=== PATIENT | male | born 1985 | race African-American/Black ===

== ENCOUNTER 2020-06-18 14:42 | Emergency (ER) | payer SELFPAY ==
--- NOTE | 2020-06-18 15:09 | ER Document Report ---
ED Medical Screen (RME) - General Chief Complaint: Chest Pain Stated Complaint: ANXIOUS,CHEST PAIN Time Seen by Provider: 06/18/20 15:01 Mode of Arrival: Ambulatory Information source: Patient Notes: 35-year-old male presented to ED for complaint of chest pain. He states his his chest is very painful and the chest pain is causing him to be short of breath. He states the chest pain started about an hour. He states he did drink 2 rapid energy drinks before coming to the emergency room. He states he is getting very lightheaded right now. He is having trouble staying in the chair. I have greeted and performed a rapid initial assessment of this patient. A comprehensive ED assessment and evaluation of the patient, analysis of test results and completion of medical decision making process will be conducted by an additional ED providers. Physical Exam - Vital signs Vitals: Temp Pulse Resp BP Pulse Ox 98.8 F 158 H 20 159/76 H 100 06/18/20 14:55 06/18/20 14:55 06/18/20 14:55 06/18/20 14:55 06/18/20 14:55 Course - Vital Signs Vital signs: Temp Pulse Resp BP Pulse Ox 98.8 F 158 H 20 159/76 H 100 06/18/20 14:55 06/18/20 14:55 06/18/20 14:55 06/18/20 14:55 06/18/20 14:55
--- NOTE | 2020-06-18 15:20 | EKG REPORT ---
SEVERITY:- BORDERLINE ECG - SINUS TACHYCARDIA BORDERLINE T WAVE ABNORMALITIES : Confirmed by: Kely Boothe MD 18-Jun-2020 15:18:22
[2020-06-18 15:36] LABS: ABSOLUTE EOSINOPHILS # (AUTO) 0.1 10^3/uL (0.0-0.6); ABSOLUTE LYMPHOCYTES (AUTO) 2.1 10^3/uL (0.5-4.7); ABSOLUTE MONOCYTES (AUTO) 0.5 10^3/uL (0.1-1.4); ABSOLUTE NEUT (AUTO) 3.8 10^3/uL (1.7-8.2); BASOPHILS % (AUTO) 0.5 % (0-2); EOSINOPHILS % (AUTO) 1.1 % (0-6); HEMATOCRIT 40.1 % (37.9-51.0); HEMOGLOBIN 13.3 g/dL (13.5-17.0); LYMPHOCYTES % (AUTO) 32.3 % (13-45); MEAN CORPUSCULAR HEMOGLOBIN 29.2 pg (27.0-33.4); MEAN CORPUSCULAR HGB CONC 33.3 g/dL (32.0-36.0); MEAN CORPUSCULAR VOLUME 88 fl (80-97); MONOCYTES % (AUTO) 8.1 % (3-13); PLATELET COUNT 257 10^3/uL (150-450); RED BLOOD COUNT 4.57 10^6/uL (4.35-5.55); RED CELL DISTRIBUTION WIDTH 15.3 % (11.5-14.0); TOTAL CELLS COUNTED % (AUTO) 100 %; WHITE BLOOD COUNT 6.5 10^3/uL (4.0-10.5)
--- NOTE | 2020-06-18 15:48 | ER Document Report ---
ED General - General Chief Complaint: Anxiety Stated Complaint: ANXIOUS,CHEST PAIN Time Seen by Provider: 06/18/20 15:01 Mode of Arrival: Ambulatory Information source: Patient Notes: Patient is a 35-year-old male presenting to the emergency department chief complaint of anxiety and chest pain. States that he got up this morning and had an energy drink and then smoked 1 marijuana cigarette and followed that with another energy drink and at about 130pm patient states that he started having rapid heartbeat shortness of breath and severe anxiety. Patient denies nausea vomiting or diarrhea prior to the event but states that during the anxiety he was very nauseated. Patient denies travel history trauma history sick contacts bad food exposure. TRAVEL OUTSIDE OF THE [place] IN LAST 30 DAYS: No - HPI Onset: Just prior to arrival Onset/Duration: Sudden Quality of pain: Pressure Severity: Moderate Pain Level: 2 Associated symptoms: Shortness of breath, Other - anxious Exacerbated by: Denies Relieved by: Denies Similar symptoms previously: Yes Recently seen / treated by doctor: No - Related Data Allergies/Adverse Reactions: No Known Allergies Allergy (Verified 06/18/20 15:47) Past Medical History - General Information source: Patient - Social History Smoking Status: Current Every Day Smoker Cigarette use (# per day): Yes Chew tobacco use (# tins/day): No Smoking Education Provided: Yes Frequency of alcohol use: Social Drug Abuse: Marijuana Lives with: Family Family History: Reviewed & Not Pertinent Patient has suicidal ideation: No Patient has homicidal ideation: No - Medical History Medical History: Negative Review of Systems - Review of Systems Notes: REVIEW OF SYSTEMS: CONSTITUTIONAL : Denies fever, chills, or sweats. Denies recent illness. EENT: Denies eye, ear, throat, or mouth pain or symptoms. Denies nasal or sinus congestion. CARDIOVASCULAR: Per HPI. RESPIRATORY: Per HPI GASTROINTESTINAL: Per HPI. GENITOURINARY: Denies difficulty urinating, painful urination, burning, frequen cy, or blood in urine. MUSCULOSKELETAL: Denies neck or back pain or joint pain or swelling. SKIN: Denies rash or skin lesions. HEMATOLOGIC : Denies easy bruising or bleeding. NEUROLOGICAL: Denies altered mental status or loss of consciousness. Denies headache. Denies weakness or paralysis or loss of use of either side. Denies problems with gait or speech. Denies sensory or motor loss. PSYCHIATRIC: Denies suicidal or homicidal ideations 10 Systems are negative unless otherwise specified above Physical Exam - Vital signs Vitals: Temp Pulse Resp BP Pulse Ox 98.8 F 158 H 20 159/76 H 100 06/18/20 14:55 06/18/20 14:55 06/18/20 14:55 06/18/20 14:55 06/18/20 14:55 - Notes Notes: PHYSICAL EXAMINATION: GENERAL: Well-appearing, well-nourished and in no acute distress 35-year-old male HEAD: Atraumatic, normocephalic. EYES: Pupils equal round and reactive to light, extraocular movements intact, sclera anicteric, conjunctiva are normal. ENT: nares patent, oropharynx clear without exudates. Moist mucous membranes. NECK: Normal range of motion, supple without lymphadenopathy, no appreciable JVD LUNGS: Lungs clear to auscultation bilaterally and equal. No wheezes rales or rhonchi. HEART: Tachycardic rate and rhythm without murmurs ABDOMEN: Soft, nontender, normal bowel sounds. No guarding, no rebound. No masses appreciated. EXTREMITIES: Active full range of motion, no pitting or edema. No cyanosis. 2+ pulses x4 NEUROLOGICAL: No focal neurological deficits. Moves all extremities spontaneously and on command. SKIN: Warm, Dry, and intact. Normal turgor, no rashes or lesions noted. Course - Re-evaluation Re-evalutation: 06/18/20 16:59 Patient has been maintained on a night monitor while in the emergency department. The patient has remained stable. Patient is receiving 1 L of normal saline IV to help with hydration and to help purge his system of the extreme amount of caffeine. Patient just produced a urine sample and this will be sent for evaluation. 06/18/20 18:29 Valuation at this time the patient feels much improved I have reviewed the negative laboratory EKG and radiologic results with the patient. Patient is agreeable with conservative management hydration and decreasing caffeine use. Patient is stable at time of discharge. - Vital Signs Vital signs: Temp Pulse Resp BP Pulse Ox 98.8 F 158 H 14 154/89 H 100 06/18/20 14:55 06/18/20 14:55 06/18/20 16:00 06/18/20 15:12 06/18/20 16:00 - Laboratory Result Diagrams: 06/18/20 15:22 06/18/20 15:22 Laboratory results interpreted by me: 06/18/20 06/18/20 06/18/20 15:22 15:22 17:04 Hgb 13.3 L RDW 15.3 H Glucose 143 H Urine Protein 30 H - Diagnostic Test Radiology reviewed: Reports reviewed - EKG Interpretation by Me EKG shows normal: Sinus rhythm Rate: Tachycardia Rhythm: NSR When compared to previous EKG there are: Previous EKG unavailable Discharge - Discharge Clinical Impression: Palpitations, SOB (shortness of breath) Caffeine overdose Qualifiers: Encounter type: initial encounter Injury intent: accidental or unintentional Qualified Code(s): T43.611A - Poisoning by caffeine, accidental (unintentional), initial encounter Condition: Stable Disposition: HOME, SELF-CARE Additional Instructions: Palpitations (Irregular/Rapid Heartrate) Irregular or rapid heartbeat is called "palpitation." To diagnose the cause of palpitation, we have to "catch it in the act" with an EKG. Sinus Tachycardia: This is a rapid (but NORMAL) rhythm that can be due to fever, pain, anxiety, lack of sleep, over-exertion, or drugs. Cold medications, caffeine, and diet pills are particularly likely to cause tachycardia. Usually, all that's required is rest, reassurance, and avoiding caffeine, alcohol, vi nithya, and unnecessary medicines. Paroxysmal Atrial Tachycardia (PAT): This abnormally rapid heartbeat is caused by a "short circuit" in the electrical system of the heart. It is not dangerous, unless other heart disease is present. These attacks of PAT may occur occasionally for years. Medication is available for treatment. Paroxysmal Atrial Fibrillation or Atrial Flutter: This is irregular electrical activity in the upper heart chamber. These abnormal rhythms often occur with valve disease or in hearts damaged by hardening of the arteries. These rhythms usually require further testing, for example a cardiac echo. Premature Beats: Extra beats occur more commonly after caffeine, nicotine, alcohol, cold pills, diet pills. Emotional stress or fatigue also provoke them. Extra beats are only dangerous when heart disease is present. They usually need no treatment. If they're frequent, or if evidence of heart disease develops, medication can be given to suppress them. If we were unable to "catch" the palpitations on EKG, you should try to get an EKG immediately if the symptoms begin again. Contact the physician at once if you develop persistent lightheadedness, shortness of breath, chest pain, or swelling of the ankles. Forms: Return to Work, Smoking Cessation Education
[2020-06-18 15:59] LABS: ALBUMIN 4.2 g/dL (3.5-5.0); ALKALINE PHOSPHATASE 54 U/L (38-126); ANION GAP 9 (5-19); ASPARTATE AMINO TRANSFERASE 23 U/L (17-59); BILIRUBIN,TOTAL 0.5 mg/dL (0.2-1.3); BLOOD UREA NITROGEN 10 mg/dL (7-20); CALCIUM 9.5 mg/dL (8.4-10.2); CARBON DIOXIDE 25 mmol/L (22-30); CHLORIDE 105 mmol/L (98-107); GLUCOSE 143 mg/dL (75-110); POTASSIUM 3.7 mmol/L (3.6-5.0); TOTAL PROTEIN 6.9 g/dL (6.3-8.2)
[2020-06-18] MEDS ORDERED: ONDANSETRON HCL INJ/PF 4 MG/2 ML SDV IV ONE (16:25)
[2020-06-18] MEDS ORDERED: NORMAL SALINE 1000 ML 1,000 ML IV ONE (16:25)
[2020-06-18 17:32] LABS: APPEARANCE,URINE CLEAR; BILIRUBIN,URINE NEGATIVE (NEGATIVE); COLOR,URINE YELLOW; GLUCOSE, URINE NEGATIVE (NEGATIVE); KETONES,URINE NEGATIVE (NEGATIVE); LEUKOCYTE ESTERASE,URINE NEGATIVE (NEGATIVE); NITRITE,URINE NEGATIVE (NEGATIVE); PROTEIN,URINE 30 mg/dL (NEGATIVE); URINE SPECIFIC GRAVITY 1.021; UROBILINOGEN,URINE NEGATIVE mg/dL (<2.0)
[2020-06-18 17:50] LABS: URINE AMPHETAMINES SCREEN NEGATIVE; URINE BARBITURATES SCREEN NEGATIVE; URINE BENZODIAZEPINES SCREEN NEGATIVE; URINE COCAINE SCREEN NEGATIVE; URINE METHADONE SCREEN NEGATIVE; URINE PHENCYCLIDINE SCREEN NEGATIVE
[2020-06-18 17:51] LABS: URINE MARIJUANA (THC) SCREEN UNCONFIRMED POSITIVE
--- NOTE | 2020-06-18 18:06 | RADIOLOGY REPORT (SQ) ---
EXAM DESCRIPTION: CHEST SINGLE VIEW IMAGES COMPLETED DATE/TIME: 06/18/2020 3:29 pm REASON FOR STUDY: chest pain tachycardi COMPARISON: None. EXAM PARAMETERS: NUMBER OF VIEWS: One view. TECHNIQUE: Single frontal radiographic view of the chest acquired. RADIATION DOSE: NA LIMITATIONS: None. FINDINGS: LUNGS AND PLEURA: No opacities, masses or pneumothorax. No pleural effusion. MEDIASTINUM AND HILAR STRUCTURES: No masses. Contour normal. HEART AND VASCULAR STRUCTURES: Heart normal in size. Normal vasculature. BONES: No acute findings. HARDWARE: None in the chest. OTHER: No other significant finding. IMPRESSION: NO ACUTE RADIOGRAPHIC FINDING IN THE CHEST. TECHNICAL DOCUMENTATION: JOB ID: [id number] 2010 [employer]- All Rights Reserved Reading location - IP/workstation name: [email or web address]
[2020-06-18 19:40] VITALS: BP 129/64
== END 2020-06-18 19:50 | disposition home or self-care (01) ==
LOC: ER 14:42
DX: R06.02 Shortness of breath (principal); R00.2 Palpitations; T43.611A Poisoning by caffeine, accidental (unintentional), initial encounter; R07.9 Chest pain, unspecified; F41.9 Anxiety disorder, unspecified; F17.210 Nicotine dependence, cigarettes, uncomplicated
CPT/HCPCS: 93005; 99285; 96361; 96374; 36415; 83735; 85025; 80053; 81001; 84484; 80307; 71045; 93010; J2405; J7030

== ENCOUNTER 2020-08-06 21:54 | Emergency (ER) | payer SELFPAY ==
[2020-08-06 22:42] VITALS: BP 141/76
== END 2020-08-06 23:00 | disposition left against medical advice (07) ==
LOC: ER 21:54
DX: Z53.21 Procedure and treatment not carried out due to patient leaving prior to being seen by health care provider (principal)

== ENCOUNTER 2020-08-08 00:39 | Emergency (ER) | payer SELFPAY ==
--- NOTE | 2020-08-08 02:50 | RADIOLOGY REPORT (SQ) ---
CLINICAL INDICATION: shortness of breath. TECHNIQUE: PA and lateral views were obtained of the chest COMPARISON: None. FINDINGS: The cardiomediastinal silhouette is normal. The lungs are grossly clear. No evidence of effusion or pneumothorax. Visualized bones are unremarkable. . IMPRESSION: No evidence of active intrathoracic disease .
--- NOTE | 2020-08-08 08:46 | ER Document Report ---
ED General - General Chief Complaint: Shortness Of Breath Stated Complaint: DIFFICULTY BREATHING Time Seen by Provider: 08/08/20 08:42 Primary Care Provider: LYNSEY,PROVIDER [ACTIVE STAFF] - Follow up as needed Notes: CHIEF COMPLAINT: Possible panic attacks HPI: 35-year-old male presenting for possible panic attacks. Patient states he has been having symptoms for 3 or 4 days. States he went to [facility] because he had the episode initially at work and they sent him there is a Workmen's Compensation issue. Patient states that they told him there he might be having panic attacks. Did refer him over to the cardiology office at [facility] and they placed a Holter monitor on him. He still feels there are times where he cannot catch his breath where he feels like his heart is racing. Patient denies nausea vomiting. States that he has had loss of taste and smell but states they did a Covid test on him that was negative. He has not had a fever or cough. Patient has not taken any medications for his symptoms. Patient states he had an episode like this 6 weeks ago as well and states he c beka into the hospital for that but they told him he would be fine but did not place him on any medications. ROS: See HPI - all other systems were reviewed and are otherwise negative Constitutional: no fever Eyes: no drainage, no blurred vision ENT: no runny nose, no sore throat Cardiovascular: no chest pain Resp: + SOB, no cough GI: no vomiting, no diarrhea, no abdominal pain, positive loss of taste and smell : no dysuria Integumentary: no rash Allergy: no hives Musculoskeletal: no extremity pain or swelling Neurological: no numbness/tingling, no weakness MEDICATIONS: I agree with the patient medications as charted by the RN. ALLERGIES: I agree with the allergies as charted by the RN. PAST MEDICAL HISTORY/PAST SURGICAL HISTORY: Reviewed and agree as charted by RN. SOCIAL HISTORY: Reviewed and agree as charted by RN. FAMILY HISTORY: No significant familial comorbid conditions directly related to patient complaint EXAM: Reviewed vital signs as charted by RN. CONSTITUTIONAL: Alert and oriented and responds appropriately to questions. Well-appearing; well-nourished HEAD: Normocephalic; atraumatic EYES: PERRL; Conjunctivae clear, sclerae non-icteric ENT: normal nose; no rhinorrhea; moist mucous membranes; pharynx without lesions noted, no uvula edema or deviation, no tonsillar hypertrophy, phonation normal NECK: Supple without meningismus; non-tender; no cervical lymphadenopathy, no masses CARD: RRR; no murmurs, no clicks, no rubs, no gallops; symmetric distal pulses RESP: Normal chest excursion without splinting or tachypnea; breath sounds clear and equal bilaterally; no wheezes, no rhonchi, no rales, pulse oximetry 98% on room air not hypoxic ABD/GI: Normal bowel sounds; non-distended; soft, non-tender, no rebound, no guarding; no palpable organomegaly or masses. BACK: The back appears normal and is non-tender to palpation, there is no CVA tenderness EXT: Normal ROM in all joints; non-tender to palpation; no cyanosis, no effusions, no edema SKIN: Normal color for age and race; warm; dry; good turgor; no acute lesions noted NEURO: Moves all extremities equally; Motor and sensory function intact PSYCH: The patient's mood and manner are appropriate. Grooming and personal hygiene are appropriate. MDM: 35-year-old male with possible panic attacks. States he has episodes where he feels like he cannot catch his breath and that his heart is racing. He is wearing a Holter monitor and follows through [facility] for this. Has not yet been back to be rechecked states he was told if his symptoms persisted he was to come to [place]. They did not place him on any medications for this. His EKG is sinus rhythm with a ventricular rate of 60 GA 148 QT 384 QTC 384. His EKG shows some very minimal less than [address] elevation probably early r epolarization in leads I, aVL. Interpreted by emergency department physicians as not a STEMI. He is not having active chest pain. Given his EKG findings will obtain 1 set of screening cardiac labs on the patient as well as baseline labs including a TSH. If these are normal I believe patient can likely be discharged to continue to follow-up with cardiology through [facility]. I will plan to place him on Vistaril or hydroxyzine or Atarax for anxiety. The patient was evaluated during the global COVID-19 pandemic and that diagnosis was suspected/considered upon their initial presentation. Their evaluation, treatment and testing was consistent with current guidelines for patients who present with complaints or symptoms that may be related to COVID-19 TRAVEL OUTSIDE OF THE [place] IN LAST 30 DAYS: No - Related Data Allergies/Adverse Reactions: No Known Allergies Allergy (Verified 06/18/20 15:47) Past Medical History - Social History Smoking Status: Former Smoker Family History: Reviewed & Not Pertinent Physical Exam - Vital signs Vitals: Temp Pulse Resp BP Pulse Ox 97.7 F 69 16 122/76 99 08/08/20 01:38 08/08/20 01:38 08/08/20 01:38 08/08/20 01:38 08/08/20 01:38 Course - Re-evaluation Re-evalutation: 08/08/20 11:02 Patient's lab work does not show acute abnormalities except for his thyroid function which is 0.06. He is hyperthyroid. I discussed this with him at length. He indicates he will follow back up through [facility] for management of hyperthyroidism. He continues with his Holter monitor and will continue to follow-up with cardiology as previously indicated through [facility] - Vital Signs Vital signs: Temp Pulse Resp BP Pulse Ox 98.4 F 63 16 130/61 H 100 08/08/20 09:07 08/08/20 09:07 08/08/20 09:07 08/08/20 09:07 08/08/20 09:07 - Laboratory Results Result Diagrams: 08/08/20 09:45 08/08/20 09:45 Laboratory Results Interpreted: 08/08/20 08/08/20 08/08/20 09:45 09:45 09:45 Hgb 12.8 L RDW 14.2 H Carbon Dioxide 32 H TSH 0.06 L Critical Laboratory Results Reviewed: Yes Attending or Supervising Physician who Reviewed Labs: MOHAN ARAUJO - TSH 0.06 follow-up with PCP - Radiology Results Critical Radiology Results Reviewed: No Critical Results Discharge - Discharge Clinical Impression: Hyperthyroidism Condition: Stable Disposition: HOME, SELF-CARE Additional Instructions: Follow-up with [facility] for further evaluation and management of your thyroid issues. These are likely causing some of your symptoms. You have been given a copy of your lab work to take with you to clinic
[2020-08-08 09:12] VITALS: BP 130/61
[2020-08-08] MEDS ORDERED: HYDROXYZINE PAMOATE 25 MG CAPSULE PO ONE (09:49)
[2020-08-08 10:00] LABS: ABSOLUTE LYMPHOCYTES (AUTO) 1.4 10^3/uL (0.5-4.7); ABSOLUTE MONOCYTES (AUTO) 0.5 10^3/uL (0.1-1.4); HEMATOCRIT 38.6 % (37.9-51.0); HEMOGLOBIN 12.8 g/dL (13.5-17.0); LYMPHOCYTES % (AUTO) 35.9 % (13-45); MEAN CORPUSCULAR HEMOGLOBIN 28.9 pg (27.0-33.4); MEAN CORPUSCULAR HGB CONC 33.3 g/dL (32.0-36.0); MEAN CORPUSCULAR VOLUME 87 fl (80-97); MONOCYTES % (AUTO) 12.6 % (3-13); PLATELET COUNT 226 10^3/uL (150-450); RED BLOOD COUNT 4.44 10^6/uL (4.35-5.55); RED CELL DISTRIBUTION WIDTH 14.2 % (11.5-14.0); SEGMENTED NEUTROPHILS % (AUTO) 49.5 % (42-78); TOTAL CELLS COUNTED % (AUTO) 100 %
[2020-08-08 10:17] LABS: ALBUMIN 4.3 g/dL (3.5-5.0); ALKALINE PHOSPHATASE 54 U/L (38-126); ASPARTATE AMINO TRANSFERASE 26 U/L (17-59); BILIRUBIN,TOTAL 0.6 mg/dL (0.2-1.3); BLOOD UREA NITROGEN 17 mg/dL (7-20); CALCIUM 9.9 mg/dL (8.4-10.2); CARBON DIOXIDE 32 mmol/L (22-30); CHLORIDE 103 mmol/L (98-107); GLUCOSE 100 mg/dL (75-110); POTASSIUM 4.5 mmol/L (3.6-5.0); TOTAL PROTEIN 7.3 g/dL (6.3-8.2)
[2020-08-08 10:22] LABS: ANION GAP 5 (5-19)
--- NOTE | 2020-08-08 23:45 | EKG REPORT ---
SEVERITY:- NORMAL ECG - SINUS RHYTHM ST ELEV, PROBABLE NORMAL EARLY REPOL PATTERN : Confirmed by: Shaina Daigle 08-Aug-2020 23:44:14
== END 2020-08-08 11:23 | disposition home or self-care (01) ==
LOC: ER 00:39
DX: E05.90 Thyrotoxicosis, unspecified without thyrotoxic crisis or storm (principal); R06.02 Shortness of breath; R43.8 Other disturbances of smell and taste; Z87.891 Personal history of nicotine dependence
CPT/HCPCS: 36415; 71046; 80053; 84443; 84484; 85025; 93005; 93010; 99285

== ENCOUNTER 2020-08-09 17:16 | Emergency (ER) | payer SELFPAY ==
[2020-08-09] MEDS ORDERED: HYDROCODONE/ACETAMINOPHEN 5-325 MG TABLET PO ONE ×2 (17:40→21:15)
--- NOTE | 2020-08-09 17:49 | ER Document Report ---
ED Medical Screen (RME) - General Chief Complaint: Passed Out Prior to Arrival Stated Complaint: SYNCOPAL EPISODE/HEAD INJURY Time Seen by Provider: 08/09/20 17:36 Mode of Arrival: Medic Information source: Patient Notes: Patient is a 35-year-old male presenting to the emergency department after falling. Patient reports he was at his doctor's office for a follow-up from yesterday's ER visit when he slipped and fell in the bathroom on a wet floor and then lost consciousness. He does report vomiting but it was prior to the fall. He states he went there for a follow-up of his hyperthyroidism however they apparently gave him medication that was in the wrong patient's name which made him very anxious and he believes that is why he vomited. Patient has no focal neurological deficits in triage. He does have significant tenderness in the thoracic spinal area. He will be sent for CTs. He is wearing a c-collar. I have greeted and performed a rapid initial assessment of this patient. A comprehensive ED assessment and evaluation of the patient, analysis of test results and completion of the medical decision making process will be conducted by additional ED providers. I have specifically instructed the patient or family members with the patient to immediately return to any nursing staff should anything change in the patient's condition or with their chief complaint. TRAVEL OUTSIDE OF THE [place] IN LAST 30 DAYS: No - Related Data Allergies/Adverse Reactions: No Known Allergies Allergy (Verified 06/18/20 15:47) Physical Exam - Vital signs Vitals: Temp Pulse Resp BP Pulse Ox 99.0 F 76 20 138/90 H 97 08/09/20 17:35 08/09/20 17:35 08/09/20 17:35 08/09/20 17:35 08/09/20 17:35 Course - Vital Signs Vital signs: Temp Pulse Resp BP Pulse Ox 99.0 F 76 20 138/90 H 97 08/09/20 17:35 08/09/20 17:35 08/09/20 17:35 08/09/20 17:35 08/09/20 17:35
--- NOTE | 2020-08-09 18:18 | RADIOLOGY REPORT (SQ) ---
EXAM DESCRIPTION: CT CERVICAL SPINE WITHOUT IMAGES COMPLETED DATE/TIME: 08/09/2020 5:02 pm REASON FOR STUDY: fall with loss of consciousness COMPARISON: None. TECHNIQUE: Axial images acquired through the cervical spine without intravenous contrast. Images re viewed with lung, soft tissue and bone windows. Reconstructed coronal and sagittal MPR images review ed. Images stored on PACS. All CT scanners at this facility use dose modulation, iterative reconstruction, and/or weight based d osing when appropriate to reduce radiation dose to as low as reasonably achievable (ALARA). [facility]: Dose Right [facility]: CareDose [facility]: Dose Right [facility]: Teradose 4D [facility]: Smart [employer] Price RADIATION DOSE: CT Rad equipment meets quality standard of care and radiation dose reduction techniq ues were employed. CTDIvol: 18.8 mGy. DLP: 472 mGy-cm. mGy. LIMITATIONS: None. FINDINGS: ALIGNMENT: Anatomic. MINERALIZATION: Normal. VERTEBRAL BODIES: No fractures or dislocation. DISCS: Mild degenerative disc disease with loss of intervertebral disc height. No significant disc b ulges or spinal canal stenosis. FACETS, LATERAL MASSES, POSTERIOR ELEMENTS: No fractures. No dislocation. No acute findings. HARDWARE: None in the spine. VISUALIZED RIBS: No fractures. LUNG APICES AND SOFT TISSUES: No significant or acute findings. OTHER: No other significant finding. IMPRESSION: No acute fracture or dislocation of the cervical spine. Mild degenerative disc disease. TECHNICAL DOCUMENTATION: JOB ID: [id number] Quality ID # [id number]: Final reports with documentation of one or more dose reduction techniques (e.g., Au tomated exposure control, adjustment of the mA and/or kV according to patient size, use of iterative reconstruction technique) 2010 [employer]- All Rights Reserved Reading location - IP/workstation name: [email or web address]
--- NOTE | 2020-08-09 18:21 | RADIOLOGY REPORT (SQ) ---
EXAM DESCRIPTION: CT HEAD WITHOUT IMAGES COMPLETED DATE/TIME: 08/09/2020 5:02 pm REASON FOR STUDY: fall with loss of consciousness. COMPARISON: None. TECHNIQUE: Axial images acquired through the brain without intravenous contrast. Images reviewed wi th bone, brain and subdural windows. Additional sagittal and coronal reconstructions were generated. Images stored on PACS. All CT scanners at this facility use dose modulation, iterative reconstruction, and/or weight based d osing when appropriate to reduce radiation dose to as low as reasonably achievable (ALARA). [facility]: Dose Right [facility]: CareDose [facility]: Dose Right [facility]: Teradose 4D [facility]: Smart MVP Vault RADIATION DOSE: CT Rad equipment meets quality standard of care and radiation dose reduction techniq ues were employed. CTDIvol: 53.2 mGy. DLP: 1017 mGy-cm. mGy. LIMITATIONS: None. FINDINGS: VENTRICLES: Normal size and contour. CEREBRUM: No masses. No hemorrhage. No midline shift. No evidence for acute infarction. Normal gra y/white matter differentiation. No areas of low density in the white matter. CEREBELLUM: No masses. No hemorrhage. No alteration of density. No evidence for acute infarction. EXTRAAXIAL SPACES: No fluid collections. No masses. ORBITS AND GLOBE: No intra- or extraconal masses. Normal contour of globe without masses. CALVARIUM: No fracture, lytic or blastic bone lesion. PARANASAL SINUSES: No fluid or mucosal thickening. SOFT TISSUES: Small right frontal scalp lipoma. No subcutaneous mass or fluid. No hematoma. OTHER: No other significant finding. IMPRESSION: NO ACUTE INTRACRANIAL IMAGING FINDINGS. EVIDENCE OF ACUTE STROKE: NO. COMMENT: Quality ID # [id number]: Final reports with documentation of one or more dose reduction techniques (e.g., Automated exposure control, adjustment of the mA and/or kV according to patient size, use of iterative reconstruction technique) TECHNICAL DOCUMENTATION: JOB ID: [id number] 2010 [employer]- All Rights Reserved Reading location - IP/workstation name: [email or web address]
--- NOTE | 2020-08-09 18:23 | RADIOLOGY REPORT (SQ) ---
EXAM DESCRIPTION: CT THORACIC SPINE WITHOUT IMAGES COMPLETED DATE/TIME: 08/09/2020 5:02 pm REASON FOR STUDY: fall, spinal pain. COMPARISON: None. TECHNIQUE: Axial images acquired through the thoracic spine without intravenous contrast. Images re viewed with lung, soft tissue and bone windows. Reconstructed coronal and sagittal MPR images review ed. Images stored on PACS. All CT scanners at this facility use dose modulation, iterative reconstruction, and/or weight based d osing when appropriate to reduce radiation dose to as low as reasonably achievable (ALARA). [facility]: Dose Right [facility]: CareDose [facility]: Dose Right [facility]: Teradose 4D [facility]: Smart [employer] PTY RADIATION DOSE: CT Rad equipment meets quality standard of care and radiation dose reduction techniq ues were employed. CTDIvol: 112.7 mGy. DLP: 4704 mGy-cm. mGy. LIMITATIONS: None. FINDINGS: VISUALIZED LUNGS: No acute opacities. No pneumothorax. SOFT TISSUES: No soft tissue swelling. No masses. VERTEBRAL BODIES: No acute fracture or cortical disruption. Small Schmorl's nodes at multiple verteb ral body endplates without destructive features. No loss of vertebral body heights. DISCS: Mild degenerative disc disease with loss of intervertebral disc heights at multiple levels. ALIGNMENT: Normal. TRANSVERSE PROCESSES, POSTERIOR ELEMENTS: No fractures. No dislocation. No acute findings. HARDWARE: None in the spine. VISUALIZED RIBS: No fractures. OTHER: No other significant finding. IMPRESSION: No acute fracture or dislocation of the thoracic spine. Mild degenerative disc disease and spondylosis. TECHNICAL DOCUMENTATION: JOB ID: [id number] Quality ID # [id number]: Final reports with documentation of one or more dose reduction techniques (e.g., Au tomated exposure control, adjustment of the mA and/or kV according to patient size, use of iterative reconstruction technique) 2010 [employer]- All Rights Reserved Reading location - IP/workstation name: [id number]
[2020-08-09] MEDS ORDERED: HYDROCODONE/ACETAMINOPHEN 5-325 MG (6 TAB/ER DISP) PO PRN (21:01)
--- NOTE | 2020-08-09 21:04 | ER Document Report ---
HPI - HPI Time Seen by Provider: 08/09/20 17:36 Notes: Patient is a 35-year-old male presenting to the emergency department after falling. Patient reports he was at his doctor's office for a follow-up from yesterday's ER visit when he slipped and fell in the bathroom on a wet floor and then lost consciousness. He does report vomiting but it was prior to the fall. He states he went there for a follow-up of his hyperthyroidism however they apparently gave him medication that was in the wrong patient's name which made him very anxious and he believes that is why he vomited. Patient has no focal neurological deficits in triage. He does have significant tenderness in the thoracic spinal area. He will be sent for CTs. He is wearing a c-collar. - ROS Systems Reviewed and Negative: Yes All other systems reviewed and negative - MUSCULOSKELETAL Musculoskeletal: REPORTS: Back Pain, Neck Pain Past Medical History - General Information source: Patient - Social History Smoking Status: Never Smoker Family History: Reviewed & Not Pertinent - Medical History Medical History: Negative Surgical Hx: Negative Vertical Provider Document - CONSTITUTIONAL Notes: PHYSICAL EXAMINATION: GENERAL: Well-appearing, well-nourished and in no acute distress. HEAD: Atraumatic, normocephalic. EYES: Pupils equal round extraocular movements intact, conjunctiva are normal. ENT: Nares patent NECK: Normal range of motion LUNGS: No respiratory distress Musculoskeletal: Limited cervical range of motion secondary to pain. Cervical spinal and thoracic spinal tenderness noted, no step-off or deformity. NEUROLOGICAL: Normal speech, normal gait. PSYCH: Normal mood, normal affect. SKIN: Warm, Dry, normal turgor, no rashes or lesions noted. - INFECTION CONTROL TRAVEL OUTSIDE OF THE [place] IN LAST 30 DAYS: No Course - Re-evaluation Re-evalutation: All imaging was reassuring, no acute findings. Patient reports feels improved after administration of medications here in the ED. Patient will follow up with primary care. - Vital Signs Vital signs: Temp Pulse Resp BP Pulse Ox 99.0 F 76 20 138/90 H 97 08/09/20 17:35 08/09/20 17:35 08/09/20 17:35 08/09/20 17:35 08/09/20 17:35 - Laboratory Results Critical Laboratory Results Reviewed: No Critical Results - Radiology Results Critical Radiology Results Reviewed: No Critical Results Discharge - Discharge Clinical Impression: Fall with injury Qualifiers: Encounter type: initial encounter Qualified Code(s): W19.XXXA - Unspecified fall, initial encounter Condition: Stable Disposition: HOME, SELF-CARE Additional Instructions: Plea take medications as prescribed. Keep follow up appt with your doctor. Prescriptions: Hydrocodone/Acetaminophen [[place] 5-325 mg Tablet] 1 tab PO Q6HP PRN #10 tablet PRN Reason: Forms: Return to Work
[2020-08-09 21:46] VITALS: BP 134/90
== END 2020-08-09 21:45 | disposition home or self-care (01) ==
LOC: ER 17:16
DX: S06.9X9A Unspecified intracranial injury with loss of consciousness of unspecified duration, initial encounter (principal); W01.0XXA Fall on same level from slipping, tripping and stumbling without subsequent striking against object, initial encounter; Y93.89 Activity, other specified; Y92.531 Health care provider office as the place of occurrence of the external cause; M50.30 Other cervical disc degeneration, unspecified cervical region; M51.34 Other intervertebral disc degeneration, thoracic region; M47.814 Spondylosis without myelopathy or radiculopathy, thoracic region
CPT/HCPCS: 70450; 72125; 72128; 99284

== ENCOUNTER 2020-08-10 03:53 | Emergency (ER) | payer SELFPAY ==
[2020-08-10] MEDS ORDERED: ONDANSETRON HCL INJ/PF 4 MG/2 ML SDV IM ONE (04:25)
--- NOTE | 2020-08-10 09:33 | ER Document Report ---
Entered by ANTHONY LEDEZMA SCRIBE 08/10/20 0900 Acting as scribe for:OLIVIA CRAWLEY MD ED General - General Chief Complaint: Headache Stated Complaint: BACK PAIN, FALL Time Seen by Provider: 08/10/20 07:44 Primary Care Provider: RAZA JOSE PA [Primary Care Provider] - Follow up as needed Information source: Patient Notes: This 35 year old male patient presents to the ED today with a chief complaint of random episodes of being short of breath the past x1.5 months with hyperventilating. Patient states he has recently been diagnosed with hyperthyroidism and began taking a medication yesterday prescribed by [facility]. Patient reports a mechanical fall yesterday and has been seen in the ED for this already, not mentioning back pain today. Patient states he still has a headache from yesterday and is taking his prescribed pain medication. TRAVEL OUTSIDE OF THE [place] IN LAST 30 DAYS: No - Related Data Allergies/Adverse Reactions: No Known Allergies Allergy (Verified 06/18/20 15:47) Home Medications: Propanolol. [place] Past Medical History - General Information source: Patient, [facility] Records - Social History Smoking Status: Never Smoker Chew tobacco use (# tins/day): No Frequency of alcohol use: Rare Drug Abuse: None Family History: Reviewed & Not Pertinent Endocrine Medical History: Reports: Hx Hyperthyroidism Review of Systems - Review of Systems Constitutional: No symptoms reported EENT: No symptoms reported Cardiovascular: No symptoms reported Respiratory: See HPI, Short of breath Gastrointestinal: No symptoms reported Genitourinary: No symptoms reported Male Genitourinary: No symptoms reported Musculoskeletal: See HPI. denies: Back pain Skin: No symptoms reported Hematologic/Lymphatic: No symptoms reported Neurological/Psychological: See HPI, Headaches -: Yes All other systems reviewed and negative Physical Exam - Vital signs Vitals: Temp Pulse Resp BP Pulse Ox 98.4 F 67 18 116/68 100 08/10/20 04:11 08/10/20 04:11 08/10/20 04:11 08/10/20 04:11 08/10/20 04:11 - General General appearance: Appears well, Alert - HEENT Head: Normocephalic, Atraumatic Eyes: Normal Pupils: PERRL - Respiratory Respiratory status: No respiratory distress Chest status: Nontender Breath sounds: Normal Chest palpation: Normal Notes: Saturating 100% on room air. - Cardiovascular Rhythm: Regular Heart sounds: Normal auscultation, S1 appreciated, S2 appreciated Murmur: No - Abdominal Inspection: Normal Distension: No distension Bowel sounds: Normal Tenderness: Nontender - Extremities General upper extremity: Normal inspection, Normal ROM General lower extremity: Normal inspection, Normal ROM. No: Edema - Neurological Neuro grossly intact: Yes Cognition: Normal Orientation: AAOx4 Henderson Coma Scale Eye Opening: Spontaneous Henderson Coma Scale Verbal: Oriented José Antonio Coma Scale Motor: Obeys Commands Henderson Coma Scale Total: 15 Speech: Normal Motor strength normal: LUE, RUE, LLE, RLE Sensory: Normal Notes: No tremors to the bilateral upper extremities. - Psychological Associated symptoms: Normal affect, Normal mood - Skin Skin Temperature: Warm Skin Moisture: Dry Skin Color: Normal Course - Re-evaluation Re-evalutation: 08/10/20 09:27 Patient resting comfortably now. Explained the patient that he has hyperthyroidism and that he is already followed up with the clinic who ordered lab test on him just 1 day ago to further define and treat his hyperthyroidism patient was placed on propranolol to help control tachycardia. Patient's complaint was that he continues to have episodes of shortness of breath that seem to come and go which he has been told that is part of his hyperthyroidism and however he has not adjusted to this at this point in the medications as not a miracle drug where it would be 1 dose and he is better. Patient is learning t o be patient and to tolerate the work-up that he is in the midst of and to be patient for further evaluation from the [facility]. Patient is also placed on hydrocodone by the [facility] because he had fallen and struck his head and he appears to be doing well on that medication at this time. - Vital Signs Vital signs: Temp Pulse Resp BP Pulse Ox 98.4 F 67 18 116/68 100 08/10/20 04:11 08/10/20 04:08/10/20 04:11 08/10/20 04:08/10/20 04:08/10/20 09:30 Vital signs stable - Laboratory Results Critical Laboratory Results Reviewed: No Critical Results - Radiology Results Critical Radiology Results Reviewed: No Critical Results Discharge - Discharge Clinical Impression: Hyperthyroidism Condition: Stable Disposition: HOME, SELF-CARE Additional Instructions: You are being treated for your hyperthyroidism the [facility]. They recently yves labs on you and further evaluation and perhaps further medications should be forthcoming once they get the results of asking that you be patient with that process and continue to take the propranolol as you are doing at this time. Please keep your appointment date that you may have all create a new appointment date with them so that you can go over your lab results with your [facility] doctor. Referrals: RAZA JOSE PA [Primary Care Provider] - Follow up as needed I personally performed the services described in the documentation, reviewed and edited the documentation which was dictated to the scribe in my presence, and it accurately records my words and actions.
[2020-08-10 09:45] VITALS: BP 113/73
== END 2020-08-10 09:44 | disposition home or self-care (01) ==
LOC: ER 03:53
DX: E05.90 Thyrotoxicosis, unspecified without thyrotoxic crisis or storm (principal); R51.9 Headache, unspecified; M54.9 Dorsalgia, unspecified; R06.02 Shortness of breath; R06.4 Hyperventilation
CPT/HCPCS: 99282

== ENCOUNTER 2020-08-15 16:04 | Emergency (ER) | payer SELFPAY ==
--- NOTE | 2020-08-15 17:36 | ER Document Report ---
ED Medical Screen (RME) - General Chief Complaint: Back Pain Stated Complaint: BACK/NECK/HEAD PAIN/BLURRY VISION Primary Care Provider: RAZA JOSE PA [Primary Care Provider] - Follow up as needed TRAVEL OUTSIDE OF THE [place] IN LAST 30 DAYS: No - HPI Notes: 08/15/20 17:31 Rapid Medical Exam HPI: This is a 35-year-old male multiple complaints. He reports that he had a fall at [facility] on 08/09 and struck his head causing loss of consciousness and injured his back. He was seen in the ED after this but normal CAT scans. Patient has was taking [place] at home that did help his pain. Patient says the goose egg on his forehead has gotten bigger and has increased pain now. He denies reinjury. Patient says he has a severe headache and blurry vision. He also complains of ongoing neck and thoracic pain. Reports some intermittent tingling to right hand and right foot. Denies extremity weakness. He is being worked up for hyperthyroidism and is taking propanolol. Patient says the propanolol greatly helps his thyroid symptoms. He denies fever/chills, chest pain, abdominal pain. Physical Exam: GENERAL: Well-appearing, well-nourished and mildly anxious HEAD: 3 cm subglial hemorrhage to right forehead. Normocephalic. ENT: Moist mucous membranes. RESP: Respirations even and unlabored CV- Regular rate. NEURO: No focal neurological deficits. Moves all extremities spontaneously and on command. My involvement in this patients care was limited to a rapid initial assessment. A comprehensive ED assessment and evaluation of the patient, analysis of test results, treatment, and completion of the medical decision making process will be performed by other ER providers. 08/15/20 17:34 - Related Data Allergies/Adverse Reactions: No Known Allergies Allergy (Verified 06/18/20 15:47) Past Medical History - Social History Frequency of alcohol use: Rare Drug Abuse: None Endocrine Medical History: Reports: Hx Hyperthyroidism Physical Exam - Vital signs Vitals: Temp Pulse Resp BP Pulse Ox 98.5 F 56 L 16 146/51 H 98 08/15/20 16:12 08/15/20 16:12 08/15/20 16:12 08/15/20 16:12 08/15/20 16:12 Course - Vital Signs Vital signs: Temp Pulse Resp BP Pulse Ox 98.5 F 56 L 16 146/51 H 98 08/15/20 16:12 08/15/20 16:12 08/15/20 16:12 08/15/20 16:12 08/15/20 16:12 Doctor's Discharge - Discharge Referrals: RAZA JOSE PA [Primary Care Provider] - Follow up as needed
[2020-08-16 00:09] LABS: MEAN CORPUSCULAR VOLUME 86 fl (80-97)
[2020-08-16 00:26] LABS: BLOOD UREA NITROGEN 19 mg/dL (7-20); CALCIUM 9.1 mg/dL (8.4-10.2); GLUCOSE 121 mg/dL (75-110); POTASSIUM 3.9 mmol/L (3.6-5.0)
[2020-08-16 00:31] LABS: CARBON DIOXIDE 30 mmol/L (22-30); CHLORIDE 103 mmol/L (98-107)
[2020-08-16 00:32] LABS: ABSOLUTE EOSINOPHILS # (AUTO) 0.1 10^3/uL (0.0-0.6); ABSOLUTE MONOCYTES (AUTO) 0.6 10^3/uL (0.1-1.4); ABSOLUTE NEUT (AUTO) 2.1 10^3/uL (1.7-8.2); ANION GAP 3 (5-19); BASOPHILS % (AUTO) 0.3 % (0-2); EOSINOPHILS % (AUTO) 1.4 % (0-6); HEMATOCRIT 36.6 % (37.9-51.0); HEMOGLOBIN 12.2 g/dL (13.5-17.0); LYMPHOCYTES % (AUTO) 41.7 % (13-45); MEAN CORPUSCULAR HEMOGLOBIN 28.6 pg (27.0-33.4); MEAN CORPUSCULAR HGB CONC 33.3 g/dL (32.0-36.0); MONOCYTES % (AUTO) 12.3 % (3-13); PLATELET COUNT 240 10^3/uL (150-450); RED BLOOD COUNT 4.25 10^6/uL (4.35-5.55); SEGMENTED NEUTROPHILS % (AUTO) 44.3 % (42-78); TOTAL CELLS COUNTED % (AUTO) 100 %; WHITE BLOOD COUNT 4.7 10^3/uL (4.0-10.5)
[2020-08-16] MEDS ORDERED: KETOROLAC TROMETHAMINE INJ/PF 30 MG/1 ML SDV IV ONE (00:45)
[2020-08-16] MEDS ORDERED: ACETAMINOPHEN 325 MG TABLET PO ONE (00:45)
[2020-08-16 00:58] LABS: APPEARANCE,URINE CLEAR; BILIRUBIN,URINE NEGATIVE (NEGATIVE); COLOR,URINE YELLOW; GLUCOSE, URINE NEGATIVE (NEGATIVE); KETONES,URINE NEGATIVE (NEGATIVE); LEUKOCYTE ESTERASE,URINE NEGATIVE (NEGATIVE); NITRITE,URINE NEGATIVE (NEGATIVE); PROTEIN,URINE NEGATIVE (NEGATIVE); URINE SPECIFIC GRAVITY 1.031
--- NOTE | 2020-08-16 01:00 | ER Document Report ---
ED General - General Chief Complaint: Back Pain Stated Complaint: BACK/NECK/HEAD PAIN/BLURRY VISION Time Seen by Provider: 08/15/20 23:18 Primary Care Provider: RAZA JOSE PA [Primary Care Provider] - Follow up as needed TRAVEL OUTSIDE OF THE [place] IN LAST 30 DAYS: No - HPI Notes: Patient is a 35-year-old male who presents emergency department for evaluation. He sustained a fall after slipping in his doctor's office. He fell, hit his head on the wall and was knocked unconscious. He has had continued headaches. He said intermittent blurred vision. He said confusion. He states he feels like he is having "seizure activity" in his sleep. He states he has intermittent numbness and tingling. He states that the lump on his head is getting bigger. - Related Data Allergies/Adverse Reactions: No Known Allergies Allergy (Verified 06/18/20 15:47) Past Medical History - General Information source: Patient - Social History Smoking Status: Never Smoker Frequency of alcohol use: Rare Drug Abuse: None Family History: Reviewed & Not Pertinent Patient has homicidal ideation: No Endocrine Medical History: Reports: Hx Hyperthyroidism Physical Exam - Vital signs Vitals: Temp Pulse Resp BP Pulse Ox 98.5 F 56 L 16 146/51 H 98 08/15/20 16:12 08/15/20 16:12 08/15/20 16:12 08/15/20 16:12 08/15/20 16:12 - Notes Notes: Vital signs reviewed, please refer to chart. Head is normocephalic, small right frontal hematoma noted. Pupils equal round, reactive to light. Neck is supple without meningismus. He does have no midline tenderness on the spine. Some mild paraspinal musculature tenderness noted throughout the cervical spine. Heart is regular rate and rhythm. Lungs are clear to auscultation bilaterally. Abdomen is soft, nontender, normoactive bowel sounds throughout. Extremities without cyanosis, clubbing. Posterior calves are nontender. Peripheral pulses are equal. Skin is warm and dry. Patient is awake, alert, oriented x3. Cranial nerves II - XII are grossly intact without focal neurological deficits. Strength is plus 5 out of 5 bilateral upper and lower extremities. Sensation is intact. Reflexes symmetrical. Intact [id number], rapid alternating movements, [id number]. Course - Re-evaluation Re-evalutation: 08/16/20 01:21 Patient presents emergency department for evaluation. Laboratory investigations were ordered through triage. Patient has a completely normal exam with the exception of a small hematoma on his forehead. He has a normal neurological ex am. I suspect he has a postconcussive syndrome. The patient is told that he can expect this after significant injury for some time. She is told to rest. Tylenol and ibuprofen for severe pain. I will give him Robaxin for cervical strain. He is to follow-up closely with primary care, return to the ED with worsening. 08/16/20 01:22 Please note patient had a repeat TSH ordered as through triage. He had a TSH ordered earlier this month. Clinically I would not make any changes based on this laboratory result and the patient will be discharged prior to it resulting. I do not expect a significant change in the TSH for another 4 to 6 weeks. - Vital Signs Vital signs: Temp Pulse Resp BP Pulse Ox 97.9 F 54 L 15 119/63 100 08/16/20 01:03 08/15/20 21:55 08/16/20 01:03 08/16/20 01:03 08/16/20 01:03 - Laboratory Results Result Diagrams: 08/15/20 23:58 08/15/20 23:58 Laboratory Results Interpreted: 08/15/20 08/15/20 08/15/20 23:54 23:58 23:58 RBC 4.25 L Hgb 12.2 L Hct 36.6 L Sodium 136.4 L Anion Gap 3 L Glucose 121 H Urine Urobilinogen 2.0 H Urine Ascorbic Acid 40 H Critical Laboratory Results Reviewed: No Critical Results - Radiology Results Critical Radiology Results Reviewed: No Critical Results Discharge - Discharge Clinical Impression: Postconcussive syndrome Cervical strain Qualifiers: Encounter type: subsequent encounter Qualified Code(s): S16.1XXD - Strain of muscle, fascia and tendon at neck level, subsequent encounter Condition: Stable Disposition: HOME, SELF-CARE Instructions: Ice Packs ([facility]), Muscle Strain ([facility]), Post-Concussion Syndrome ([facility]) Additional Instructions: Rest. Take Robaxin as needed for severe neck and back pain. This can cause drowsiness. Tylenol or ibuprofen as needed for headache. Follow-up closely with your primary care provider. Return to the emergency department with worsening or new concerning symptoms of any sort. Prescriptions: Methocarbamol [Robaxin-750] 750 mg PO TIDP PRN #21 tablet PRN Reason: Referrals: RAZA JOSE PA [Primary Care Provider] - Follow up as needed
[2020-08-16 02:21] VITALS: BP 134/62
== END 2020-08-16 02:22 | disposition home or self-care (01) ==
LOC: ER 16:04
DX: S16.1XXD Strain of muscle, fascia and tendon at neck level, subsequent encounter (principal); F07.81 Postconcussional syndrome; M54.9 Dorsalgia, unspecified; M54.2 Cervicalgia; R51.9 Headache, unspecified; R20.0 Anesthesia of skin; H53.8 Other visual disturbances; W01.0XXD Fall on same level from slipping, tripping and stumbling without subsequent striking against object, subsequent encounter; Y92.531 Health care provider office as the place of occurrence of the external cause
CPT/HCPCS: 99284; 96374; 36415; 84443; 85025; 80048; 81001; J1885